=== PATIENT | male | born 1955 | race Caucasian/White ===

== ENCOUNTER → 2024-11-03 | Outpatient (CLI) | payer MEDICARE, BC, OTHER, SELFPAY ==
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
== END | disposition home or self-care (01) ==
LOC: CDIM 14:44
PROVIDERS: Referring Provider Chiropractor; Visit Provider Chiropractor
DX: M50.322 Other cervical disc degeneration at C5-C6 level (principal); M48.02 Spinal stenosis, cervical region
CPT/HCPCS: 72050

== ENCOUNTER → 2025-04-07 | Outpatient (CLI) | payer MEDICARE, BC, OTHER, SELFPAY ==
[2025-04-13 05:03] LABS: A. alternata (M6) IgE <0.10 kU/L; A. fumigatus (M3) Class 0; A. fumigatus (M3) IgE <0.10 kU/L; Alder (T2) Class 0; Alder (T2) IgE <0.10 kU/L; Bermuda Grass (G2) Class 0; Bermuda Grass (G2) IgE <0.10 kU/L; Birch (T3) Class 0; Birch (T3) IgE <0.10 kU/L; C. herbarum (M2) Class 0; C. herbarum (M2) IgE <0.10 kU/L; Cat Dander (e1) Class 0; Cat Dander (e1) IgE <0.10 kU/L; Cockroach (I6) IgE <0.10 kU/L; Common Pigweed (W14) IgE <0.10 kU/L; Common Ragweed (W1) Class 0; Common Ragweed (W1) IgE <0.10 kU/L; D. farinae (D2) Class 0; D. farinae (D2) IgE <0.10 kU/L; D. pteronyssinus (D1) Class 0; D. pteronyssinus (D1) IgE <0.10 kU/L; Dog Dander (E5) IgE <0.10 kU/L; Elm (T8) IgE <0.10 kU/L; Mountain Cedar (T6) Class 0; Mountain Cedar (T6) IgE <0.10 kU/L; Mouse Ur Prot (E72) IgE <0.10 kU/L; Mugwort (W6) Class 0; Mugwort (W6) IgE <0.10 kU/L; Oak White (T7) Class 0; Oak White (T7) IgE <0.10 kU/L; Olive Tree (T9) Class 0; Olive Tree (T9) IgE <0.10 kU/L; P. notatum (M1) Class 0; P. notatum (M1) IgE <0.10 kU/L; Russian Thistle (W11) Class 0; Russian Thistle (W11) IgE <0.10 kU/L; Sycamore (T11) IgE <0.10 kU/L; Timothy Grass (G6) IgE <0.10 kU/L; White Mulberry (T70) IgE <0.10 kU/L
[2025-04-13 06:25] LABS: A. alternata (M6) Class 0; Cockroach (I6) Class 0; Common Pigweed (W14) Class 0; Dog Dander (E5) Class 0; Elm (T8) Class 0; IgE, Serum* 5 kU/L (114 OR LESS); IgE, Total, Serum 5 kU/L (114 OR LESS); Mouse Ur Prot (E72) Class 0; Sycamore (T11) Class 0; Timothy Grass (G6) Class 0; White Mulberry (T70) Class 0
== END | disposition home or self-care (01) ==
PROVIDERS: PCP Student in an Organized Health Care Education/Training Program; Referring Provider Student in an Organized Health Care Education/Training Program; Visit Provider Student in an Organized Health Care Education/Training Program
DX: J30.1 Allergic rhinitis due to pollen (principal); G44.89 Other headache syndrome
CPT/HCPCS: 36415; 82785; 86003

== ENCOUNTER → 2025-04-27 | Outpatient (CLI) | payer MEDICARE, BC, OTHER, SELFPAY ==
[2025-04-27 14:16] LABS: Collection Type, Urine Clean Catch
[2025-04-27 14:37] LABS: Basophils # (Auto) 0.1 Thou/mm3 (0.0-0.2); Basophils % (Auto) 1 % (0-2.5); Eosinophils # (Auto) 0.1 Thou/mm3 (0.0-0.5); Eosinophils % (Auto) 2 % (0-10); Hematocrit 39.9 % (41.0-53.0); Hemoglobin 13.0 g/dL (13.5-16.0); Immature Granulocytes Auto 0.01 Thou/mm3 (0.00-0.00); Lymphocytes # (Auto) 1.6 Thou/mm3 (1.0-4.8); Lymphocytes % (Auto) 36 % (10-50); Mean Corpuscular HGB Conc 32.6 g/dl (31.0-37.0); Mean Corpuscular Hemoglobin 30.4 pg (25.0-35.0); Mean Corpuscular Volume 93 fL (80-100); Monocytes # (Auto) 0.3 Thou/mm3 (0.0-0.8); Monocytes % (Auto) 7 % (0-12); Neutrophils # (Auto) 2.4 Thou/mm3 (1.8-7.7); Neutrophils % (Auto) 54 % (37-80); Nucleated Red Blood Cell # 0.00 Thou/mm3 (0.00-0.00); Nucleated Red Blood Cell % 0 /100 WBC (0); Platelet Count 215 Thou/mm3 (140-440); RDW Standard Deviation 46.5 fL (35.1-43.9); Red Blood Count 4.28 Miln/mm3 (4.50-5.90); White Blood Count 4.4 Thou/mm3 (3.8-10.6)
[2025-04-27 14:41] LABS: Bilirubin,Urine Negative (Negative); Blood,Urine Negative (Negative); Clarity,Urine Clear (Clear/Hazy); Color,Urine Lt-Yellow (Lt Yel-Yel); Culture Indicated,Urine Not Indicated; Glucose, Urine Negative (Negative); Ketones,Urine Negative (Negative); Leukocyte Esterase,Urine Positive (Negative); Nitrite,Urine Negative (Negative); PH,Urine 5.5 (5.0-7.0); Protein,Urine Negative (Neg - Trace); RBC,Urine 2 /hpf (0-3); Specific Gravity,Urine 1.020 (1.001-1.035); Squamous Epithelial Cell,Urine < 1 /hpf (0-5); Urobilinogen,Urine Negative mg/dL (0.0-1.0); WBC,Urine 2 /hpf (0-5)
[2025-04-27 14:52] LABS: Alanine Aminotransferase 11 U/L (10-49); Albumin, Serum 4.3 gm/dL (3.4-4.8); Albumin/Globulin Ratio 1.7 (1.2-2.2); Alkaline Phosphatase 107 U/L (46-116); Anion Gap 8 (7-16); Aspartate Amino Transferase 15 U/L (0-34); BUN/Creatinine Ratio 11 Ratio (12-20); Bilirubin,Total 0.6 mg/dL (0.3-1.2); Blood Urea Nitrogen 12 mg/dL (9-23); Calcium 9.1 mg/dL (8.3-10.6); Calcium (Corrected) 9.1 mg/dL (8.5-10.1); Carbon Dioxide 28.8 mMol/L (20.0-31.0); Chloride 108 mMol/L (98-107); Creatinine (Component) 1.1 mg/dL (0.6-1.3); Globulin 2.6 gm/dL (2.3-3.5); Glucose 109 mg/dL (74-106); Osmolality,Calculated 289 (275-295); Potassium 4.5 mMol/L (3.4-5.1); Sodium 145 mMol/L (136-145); Total Protein 6.9 gm/dL (5.7-8.2); eGFR > 60 See Note
[2025-04-27 14:53] LABS: Prostate Specific Antigen 3.04 ng/mL (0-4.00)
== END | disposition home or self-care (01) ==
LOC: COPL 13:26
PROVIDERS: PCP Family Medicine; Referring Provider Physician Assistant; Visit Provider Physician Assistant
DX: R10.9 Unspecified abdominal pain (principal); N50.812 Left testicular pain
CPT/HCPCS: 36415; 80053; 81001; 84153; 85025

== ENCOUNTER → 2025-05-04 | Outpatient (CLI) | payer MEDICARE, BC, OTHER, SELFPAY ==
[2025-05-04 08:45] LABS: Vitamin B12 302 pg/mL (211-911)
[2025-05-04 08:53] LABS: Ferritin 29 ng/mL (10.5-307.3); Iron 50 mcg/dL (65-175)
== END | disposition home or self-care (01) ==
LOC: COPL 07:49
PROVIDERS: PCP Family Medicine; Referring Provider Physician Assistant; Visit Provider Physician Assistant
DX: D64.9 Anemia, unspecified (principal)
CPT/HCPCS: 36415; 82607; 82728; 83540

== ENCOUNTER → 2025-05-06 | Outpatient (CLI) | payer MEDICARE, BC, OTHER, SELFPAY ==
[2025-05-10 14:11] LABS: Fecal Globin Result NOT DETECTED (NOT DETECTED)
== END | disposition home or self-care (01) ==
LOC: SLDO 11:34
PROVIDERS: PCP Physician Assistant; Referring Provider Physician Assistant; Visit Provider Physician Assistant
DX: D64.9 Anemia, unspecified (principal)
CPT/HCPCS: 82274; G0328

== ENCOUNTER → 2025-05-12 | Outpatient (CLI) | payer MEDICARE, BC, OTHER, SELFPAY ==
--- NOTE | 2025-05-12 13:00 | XR_ITS ---
Examination: CT abdomen and pelvis without contrast. Coronal 3-D reconstructions. Sagittal 2-D reconstructions. Date and time of exam:May 12, 2025 1322 hours INDICATIONS: Abdomen testicular pain beginning 6 months ago CTDI: vol (mGy): 8.70 DLP: (mGycm): 579 Technique: Axial images of the abdomen have been obtained, 3 mm slice thickness Intravenous contrast material has not been administered. Low dose protocols were performed. One or more of the following dose reduction techniques were used; automated exposure control, adjustment of the mA and/or KV according to patient size, use of iterative reconstruction technique. Findings: No visualized liver or splenic lesion Absent gallbladder No pancreatic or adrenal mass No renal or ureteral calculi, no hydronephrosis Aorta not enlarged 8mm fat-containing umbilical hernia. No bowel obstruction Normal appendix No diverticulitis Left inguinal hernia containing small bowel and colon but no incarcerated bowel or bowel obstruction No significant prostatomegaly Severe osteopenia IMPRESSION: Left inguinal hernia containing small bowel and colon but no incarcerated bowel or bowel obstruction
--- NOTE | 2025-05-12 13:30 | XR_ITS ---
May 12, 2025, 1350 hours INDICATIONS: Left testicular pain beginning 7 days ago FINDINGS: Right testis 4.4 cm epididymis 17 mm Arterial flow testicle. No testicular mass. Left testis 4.5 cm epididymis 0.9 cm 4 mm x 6 mm left epididymal cyst Arterial flow testicle. Tubular ectasia 9 mm in the testis Severe left hydrocele IMPRESSION: Severe left hydrocele
== END | disposition home or self-care (01) ==
PROVIDERS: PCP Family Medicine; Referring Provider Physician Assistant; Visit Provider Physician Assistant
DX: N43.3 Hydrocele, unspecified (principal); K40.90 Unilateral inguinal hernia, without obstruction or gangrene, not specified as recurrent
CPT/HCPCS: 74176; 76870

== ENCOUNTER 2025-07-22 07:30 | Day surgery (SDC) | payer MEDICARE, BC, OTHER, SELFPAY ==
--- NOTE | 2025-07-21 06:00 | EKG_ITS ---
[facility] Test Date: 2025-07-21 Pat Name: LAMIN APPLE Department: Room: - Gender: Male Digital Content Marketing Manager: RAQULE : 1955 Requested By: Babak Sanders Order Number: [id number] Reading MD: Babak Sanders Measurements Intervals [employer] Rate: 61 P: 54 [place]: 196 QRS: -55 QRSD: 116 T: 8 QT: 393 QTc: 399 Interpretive Statements SINUS RHYTHM LEFT ANTERIOR FASCICULAR BLOCK [QRS AXIS <= -45, QR IN I, RS IN II] No previous ECG available for comparison /[id number]
[2025-07-21 07:02] VITALS: BMI 30.6
[2025-07-21 09:46] LABS: Basophils # (Auto) 0.1 Thou/mm3 (0.0-0.2); Basophils % (Auto) 1 % (0-2.5); Eosinophils # (Auto) 0.1 Thou/mm3 (0.0-0.5); Eosinophils % (Auto) 2 % (0-10); Hematocrit 38.7 % (41.0-53.0); Hemoglobin 12.9 g/dL (13.5-16.0); Immature Granulocytes Auto 0.01 Thou/mm3 (0.00-0.00); Lymphocytes # (Auto) 1.6 Thou/mm3 (1.0-4.8); Lymphocytes % (Auto) 33 % (10-50); Mean Corpuscular HGB Conc 33.3 g/dl (31.0-37.0); Mean Corpuscular Hemoglobin 30.6 pg (25.0-35.0); Mean Corpuscular Volume 92 fL (80-100); Monocytes # (Auto) 0.4 Thou/mm3 (0.0-0.8); Monocytes % (Auto) 9 % (0-12); Neutrophils # (Auto) 2.7 Thou/mm3 (1.8-7.7); Neutrophils % (Auto) 55 % (37-80); Nucleated Red Blood Cell # 0.00 Thou/mm3 (0.00-0.00); Nucleated Red Blood Cell % 0 /100 WBC (0); Platelet Count 199 Thou/mm3 (140-440); RDW Standard Deviation 46.4 fL (35.1-43.9); Red Blood Count 4.21 Miln/mm3 (4.50-5.90); White Blood Count 4.8 Thou/mm3 (3.8-10.6)
[2025-07-21 09:54] LABS: INR 1.0 (0.9-1.3); Partial Thromboplastin Time 27.7 Seconds (22.0-36.0); Prothrombin Time 10.3 Seconds (9.0-12.2)
[2025-07-21 10:03] LABS: Alanine Aminotransferase 13 U/L (10-49); Albumin, Serum 4.1 gm/dL (3.4-4.8); Albumin/Globulin Ratio 1.7 (1.2-2.2); Alkaline Phosphatase 106 U/L (46-116); Anion Gap 8 (7-16); Aspartate Amino Transferase 18 U/L (0-34); BUN/Creatinine Ratio 11 Ratio (12-20); Bilirubin,Total 0.4 mg/dL (0.3-1.2); Blood Urea Nitrogen 12 mg/dL (9-23); Calcium 9.0 mg/dL (8.3-10.6); Calcium (Corrected) 9.0 mg/dL (8.5-10.1); Carbon Dioxide 29.3 mMol/L (20.0-31.0); Chloride 107 mMol/L (98-107); Creatinine (Component) 1.1 mg/dL (0.6-1.3); Estimated Creatinine Clearance 78.5 mL/min (>60); Globulin 2.4 gm/dL (2.3-3.5); Glucose 85 mg/dL (74-106); Osmolality,Calculated 285 (275-295); Potassium 4.4 mMol/L (3.4-5.1); Sodium 144 mMol/L (136-145); Total Protein 6.5 gm/dL (5.7-8.2); eGFR > 60 See Note
[2025-07-22] VITALS (8 sets, daily range): BP systolic 131–145; BP diastolic 79–88; PULSE 63–72; RESP 12–20; TEMP 36.1–36.6; O2SAT 94–97; BMI 29.9
--- NOTE | 2025-07-22 08:38 | SUR.PREOP ---
Patient expressed gratitude for prayer before their procedure.
--- NOTE | 2025-07-22 12:15 | SUR.PHASEI ---
Arrived to recovery [facility] via [facility]. Report received from Dr. Curran and Letty RN. Resting with eyes closed, no s/o pain or discomfort. No s/o distress. Dressing to left inguinal area C/D/I. Dressing to scrotum and scrotal support C/D/I.
--- NOTE | 2025-07-22 12:25 | SUR.PHASEI ---
1225: Received report from Vera RN, pt. AAOx4, vitals stable, breathing unlabored, no complaint of pain or nausea, dressing to left lower ABD and scrotum CDI, no active bleed noted.
--- NOTE | 2025-07-22 12:37 | ESOP_ITS ---
Date of Procedure 07/22/25 Pre Op Diagnosis Symptomatic large left inguinal hernia Hydrocele Post Op Diagnosis Same, indirect under direct component of the left inguinal hernia Procedure Repair of the left inguinal hernia with 3 x 6 Marlex mesh Left hydrocelectomy Findings Patient was found to have a large left indirect inguinal hernia which occurred through the internal ring. There is also weakness over the floor of the inguinal canal. There was no indirect sac through which I could reach the hydrocele Procedure Description After the patient was brought to the operating room due to clearances given. Lower abdomen was prepped with ChloraPrep solution and draped in a sterile manner. Then I made a standard left groin incision after the timeout was performed. Incision was carried out all the way to the external oblique and I opened it patient was found to have a large hernia coming through the internal ring. But there was no sac but it was mostly preperitoneal fat and possibly a portion of the bowel. The cord structures were encircled easily around a Alla drain. Then I palpated the floor which was extremely lax but the direct component was very small. There was a weakness of the transversalis fascia in the hasselbach's triangle. But most of the hernia was in the large defect in the internal ring which was present lateral to the cord structures. Therefore I decided to repair the hole direct and indirect hernia with mesh. I chose 3 inch x 6 inch Marlex mesh and folded it in double thickness and attached it medially with a 2-0 Prolene close to the pubic tubercle. Then it was attached superiorly to the internal oblique with a running fashion with a 2-0 Prolene and inferiorly to the shelving edge in a running fashion. When the internal ring was ranged and the cord structures accommodated through the whole and the mesh. This was then tucked underneath the external oblique to cover the lateral portion of the defect in the internal ring. Then I placed 1 stitch lateral to the internal ring. At the end the repair appeared sound. The cord structures were kept below the external oblique which was closed with a running 2-0 Vicryl. Then the Francisca's fascia was closed with 3-0 plain and injected half percent Marcaine and copious amounts for analgesia. Skin was then closed with 4-0 Monocryl subcut icular stitch. Dressing was applied with Adaptic and 4 x 4 gauze Then attention was turned onto the left hydrocele which could not be reached through the groin incision because of the lack of hernial sac. I made an incision transversely on the left scrotum and dissected out the sac of the hydrocele and delivered it. This was incised and all the fluid was left out. Then the excess sac was excised using Metzenbaum. Then the anterior sac that was excised was closed with a running 3-0 chromic with locking sutures for hemostasis. Testicle was protected from any harm and it was placed in the s crotum. Then the dartos was closed with running 3-0 chromic and then injected some local anesthesia and the skin was closed with running 3-0 chromic also. Dressing was applied with Adaptic and fluff and scrotal support. Patient tolerated both procedures well and returned to recovery room in stable condition. Anesthesia GETA Implants 3 x 6 inch Marlex mesh at the floor of the inguinal canal folded to double Pathology / specimen None IVF Infused 1,000 Estimated Blood Loss 40 Condition Stable Disposition PACU Surgeon Frederick Jacob MD Surgical Staff Operation Date: 07/22/25 10:00 Case Staff Anesthesiologist: Rebel Curran RN First Assistant: Lisa Scott
--- NOTE | 2025-07-22 13:25 | SUR.PHASEII ---
1325: Pt. AAOx4, vitals stable, breathing unlabored, no complaint of pain or nausea, dressing to scrotum and left lower ABD CDI, no active bleed noted, pt. tolerated sips of juice well, pt. ambulated to wheelchair with steady gait and no assist, no complications. Gave discharge instructions to the pt. and his ride, both verbalized understanding and had no further questions. Pt. left with all personal belongings.
== END 2025-07-22 13:25 | disposition home or self-care (01) ==
PROVIDERS: PCP Family Medicine; Referring Provider Surgery; Visit Provider Surgery
PROC: (CPT 49505; principal; 2025-07-22 09:45)
PROC: (CPT 49505; 2025-07-22 09:45)
DX: K40.90 Unilateral inguinal hernia, without obstruction or gangrene, not specified as recurrent (principal); N43.3 Hydrocele, unspecified; Z01.810 Encounter for preprocedural cardiovascular examination
CPT/HCPCS: 49505; 55040; 36415; 80053; 85025; 85610; 85730; 93005; A4217; A4649; C1781; J0131; J1100; J1885; J2250; J2405; J2704; J3010; J3490; L8330